=== PATIENT | female | born 1995 | race Asian ===

== ENCOUNTER 2024-02-03 09:48 | Inpatient (IN) ==
[2024-02-03] MEDS ORDERED: Lidocaine 1% VIAL 10 MG/ML 30 ML VIAL INJ PRN (11:04)
[2024-02-03] MEDS ORDERED: Prochlorperazine 5 mg/ml 2 ml VIAL (10 mg) IV PRN (11:04)
[2024-02-03] MEDS ORDERED: Nalbuphine 10 MG/ML 1 ML VIAL IV PRN (11:04)
[2024-02-03] MEDS: Lactated Ringers 1000 ml BAG 1,000 ML IV ONE (11:11)
[2024-02-03 11:13] LABS: ABS Lymphocytes 2.1 10^3/uL (1.0-4.8); ABS Monocytes 0.4 10^3/uL (0.0-0.9); ABS Nucleated RBC 0.01 10^3/ul; Eosinophil % 0.4 %; Hematocrit 34.4 % (35-45); Hemoglobin 11.7 g/dL (11.5-14.3); Lymphocyte % 24.5 %; Mean Corpuscular Hemoglobin 29.1 pg (27-33); Mean Corpuscular Volume 85.7 fL (80-97); Mean Platelet Volume 8.1 fL (7.5-11.2); Nucleated Red Blood Cells % 0.1 %/100WBC (0.0-0.8); Platelet Count 170 10^3/uL (150-450); Red Blood Count 4.01 10^6/uL (3.63-4.92); Red Cell Distribution Width 14.2 % (12-17); White Blood Count 8.5 10^3/uL (3.8-11.8)
[2024-02-03] MEDS: Penicillin G Potassium IV 5,000,000 UNITS in NS 0.9% 100 ml BAG 100 ML IVPB ONE (11:39)
[2024-02-03 11:41] LABS: Urine Benzodiazepine Screen None Detected (None Detect); Urine Cannabinoids Screen None Detected (None Detect); Urine Opiates Screen None Detected (None Detect)
[2024-02-03] MEDS: OBEPIDURAL (200 ML) 200 ML EPIDURAL ONE (12:07)
[2024-02-03] MEDS: Lactated Ringers 1000 ml BAG 1,000 ML IV SCH (12:10)
[2024-02-03 13:10] LABS: Urine Appearance Clear; Urine Bilirubin Negative (Negative); Urine Blood 1+ (Negative); Urine Color Light-Yellow; Urine Glucose Negative (Negative); Urine Ketones 3+ (Negative); Urine Nitrite Negative (Negative); Urine Protein Negative (Negative); Urine Specific Gravity 1.017 (1.002-1.030); Urine Urobilinogen Negative (Negative); Urine pH 6.5 (5.0-8.0)
[2024-02-03 13:17] LABS: Urine Bacteria Absent /HPF (Absent); Urine Red Blood Cell 3+(>10/hpf) /HPF (0-Trace); Urine White Blood Cell Trace(0-5/hpf) /HPF (0-Trace)
[2024-02-03] MEDS: Penicillin G Potassium IV 3,000,000 UNITS in NS 0.9% 100 ml BAG 100 ML IVPB SCH (15:33)
[2024-02-03] MEDS: Oxytocin in LR 20,000 MILLI.UNIT/1,000 ML BAG IV ONE (17:08)
[2024-02-03] MEDS ORDERED: Phenylephrine 40 mcg/mL 10mL (400mcg) SYRINGE IV PUSH PRN ×2 (17:52)
[2024-02-03] MEDS ORDERED: Sodium Citrate/Citric Acid LIQ 15 ML UDC PO PRN (17:52)
[2024-02-03] MEDS: OBEPIDURAL (200 ML) 200 ML EPIDURAL SCH (18:30)
[2024-02-03] MEDS ORDERED: Glycerin ADULT 2.4 gm SUPP PR PRN (19:20)
[2024-02-03] MEDS ORDERED: Lactated Ringers 1000 ml BAG 1,000 ML IV SCH (20:00)
[2024-02-03] MEDS: Witch Hazel PAD JAR TOPICAL PRN (20:59)
[2024-02-03] MEDS: Dibucaine 1% OINT 28.35 GM TUBE PR PRN (21:00)
[2024-02-03] MEDS: Oxytocin in LR 20,000 MILLI.UNIT/1,000 ML BAG IV SCH (21:37)
[2024-02-04 08:55] LABS: ABS Eosinophils 0.1 10^3/uL (0.0-0.5); ABS Lymphocytes 1.3 10^3/uL (1.0-4.8); ABS Monocytes 0.5 10^3/uL (0.0-0.9); ABS Neutrophils 5.6 10^3/uL (1.5-7.6); Eosinophil % 0.7 %; Hematocrit 27.8 % (35-45); Hemoglobin 9.5 g/dL (11.5-14.3); Lymphocyte % 17.3 %; Mean Corpuscular Hemoglobin 28.9 pg (27-33); Mean Corpuscular Volume 85.1 fL (80-97); Mean Platelet Volume 7.7 fL (7.5-11.2); Platelet Count 120 10^3/uL (150-450); Red Blood Count 3.27 10^6/uL (3.63-4.92); White Blood Count 7.6 10^3/uL (3.8-11.8)
[2024-02-04] MEDS ORDERED: COVID VAC 24-25 (12+) (Moderna) Syringe 0.5 mL IM ONE (09:00)
[2024-02-04] MEDS: Lactated Ringers 1000 ml BAG 1,000 ML IV ONE (14:09)
[2024-02-04] MEDS: Lactated Ringers 1000 ml BAG 1,000 ML IV SCH (14:09)
[2024-02-04] MEDS: Lidocaine/Epinephrin 1.5%/200 5 ML AMP INJ ONE (14:09)
[2024-02-04] MEDS: Buffered Lidocaine 1% SYRIN 1 ml INTRADERM ONE (14:09)
[2024-02-04] MEDS: Phenylephrine 40 mcg/mL 10mL (400mcg) SYRINGE ONE (16:00)
[2024-02-05 08:06] VITALS: BP 128/84
[2024-02-05] MEDS: COVID VAC 24-25 (12+) (Moderna) Syringe 0.5 mL IM ONE (08:18)
[2024-02-06 21:22] LABS: Syphilis IgG Screen Nonreactive
[2024-02-06 21:22] LABS: Syphilis IgG Screen Nonreactive
== END 2024-02-05 15:09 | disposition home or self-care (01) | DRG 560 ==
LOC: MCHOBOUT 09:48 → MCHOB 10:26
PROVIDERS: ADMIT Advanced Practice Midwife; ATTEND Advanced Practice Midwife